=== PATIENT | female | born 1990 | race African-American/Black ===

== ENCOUNTER 2023-04-10 11:46 | Emergency (ER) | payer MEDICAID, OTHER ==
[~2023-04-10] VITALS: Ht 165.1 cm; Wt 53.0 kg
[2023-04-10 12:08] VITALS: O2SAT 99
[2023-04-10] MEDS: SULFAMETHOXAZOLE/TRIMETHOPRIM 800/160MG TABLET PO ONE (12:15)
[2023-04-10] MEDS: CLINDAMYCIN HCL 150MG CAPSULE PO SCH (12:15)
[2023-04-10] MEDS ORDERED: TETANUS, DIPHTHERIA, PERTUSSIS VAC/PF 0.5ML (>10YR OLD) IM ONE (12:15)
[2023-04-10] MEDS ORDERED: SULF1TAB48 MT (12:22)
[2023-04-10] MEDS ORDERED: CLIN-116 MT (12:22)
[2023-04-10] MEDS: TETANUS, DIPHTHERIA, PERTUSSIS VAC/PF 0.5ML (>10YR OLD) IM ONE (15:45)
[2023-04-10] MEDS: SULFAMETHOXAZOLE/TRIMETHOPRIM 800/160MG TABLET PO NR (15:45)
[2023-04-10 16:20] VITALS: BP 123/88; PULSE 77; RESP 16; TEMP 97.9
== END 2023-04-10 16:24 | disposition home or self-care (01) ==
LOC: ER 11:46
DX: S40.812A Abrasion of left upper arm, initial encounter (principal); M79.602 Pain in left arm; W50.3XXA Accidental bite by another person, initial encounter; Y93.89 Activity, other specified; Y92.89 Other specified places as the place of occurrence of the external cause; Y99.8 Other external cause status
CPT/HCPCS: 73090; 90715; 90471; 99291; Z7610